=== PATIENT | female | born 1965 | race Caucasian/White ===

== ENCOUNTER → 2017-04-29 | Day surgery (SDC) | payer OTHER ==
[~2017-04-29] MED LIST: ABILIFY5 MG PO; ALPRAZOLAM PO; AMBIEN PO; BENAZEPRIL PO; CELEXA PO; COZAAR100 MG PO; DICLOFENAC PO; ESTRACE PO; HYDROCHLOROTHIA25 MG PO; HYDROCODON-ACE1 EAC9 PO; LEVSIN PO; LODINE PO; LOTENSIN HCT 201 TAB PO; LOVASTATIN20 M1 PO; NABUMETONE PO; NEXIUM PO; NORCO 7.5/325 T1 TAB PO; SYNTHROID PO; VITAMIN D1000 UNI1 PO; WELLBUTRIN PO
--- NOTE | ~2017-04-29 | OR ---
Unit #: [id number] #: [id number] Patient: CONCEPCION CATALAN [id number] [address] [place], [place] [address] [id number] O MR#: [id number] NAME: CONCEPCION CATALAN. ROOM: Date of Procedure: 04/29/2017 Admission Date: 04/29/2017 Surgeon: Sylvain Bhatt M.D. : 1965 Attending Physician: Sylvain Bhatt M.D. Referring Physician: Sylvain Bhatt M.D. Primary Care Physician: Halie Giordano M.D. OPERATIVE REPORT PREOPERATIVE DIAGNOSES 1. Rectal bleeding. 2. Reflux symptoms. 3. Abdominal bloating. POSTOPERATIVE DIAGNOSES 1. Rectal bleeding. 2. Reflux symptoms. 3. Abdominal bloating. PROCEDURES PERFORMED 1. Esophagogastroduodenoscopy. 2. Biopsy of antrum for Helicobacter pylori testing. 3. Biopsy of duodenum for celiac disease testing and pathology. 4. Colonoscopy to cecum. 5. Multiple random biopsies of colon. 6. Hemoclip placement x2 on biopsy sites in the proximal ascending colon. ANESTHESIA Monitored anesthesia care. FINDINGS The patient was found to have on upper endoscopy to have a medium-sized hiatal hernia, mild distal gastritis. There were also some changes indicative of esophageal spasm. On colonoscopy, the patient was found have a normal colon except for internal hemorrhoids. Multiple biopsies were obtained. Two biopsies in the ascending colon had some slight oozing and hemostasis was obtained with hemoclip placement. SPECIMENS Sent to pathology. COMPLICATIONS None apparent. CONDITION The patient tolerated the procedure well. INDICATIONS FOR PROCEDURE The patient is a 51-year-old white female, who presents at this time with the complaint of intermittent rectal bleeding. She also has reflux Unit #: [id number] #: [id number] Patient: CONCEPCION CATALAN symptoms and has had some abdominal bloating. She will often eat and have to have a loose bowel movement immediately afterwards. She presents at this time for evaluation by upper and lower endoscopy. DESCRIPTION OF PROCEDURE After obtaining informed consent, the patient was brought to endoscopy suite and after adequate monitored anesthesia care, had the endoscope placed through the mouth into the upper esophagus under direct vision. It was advanced to the second and third portion of the duodenum without difficulty with lumen always in view. The duodenum was normal. Multiple biopsies were obtained with good hemostasis for evaluation for celiac disease and pathology. The duodenal bulb was normal and the pylorus opened normally. There was some mild distal gastritis present and a biopsy was obtained for Helicobacter pylori testing. On retroflexion back to the GE junction, there was a medium sized hiatal hernia. No other abnormalities were found in the proximal third, middle third, or incisura. On pulling back above the GE junction, there was no stenosis, stricture, or neoplasm seen. There was in the distal esophagus what appeared to be intermittent esophageal spasm in the area of the GE junction, where the GE junction but not opened up easily and actually blanched at the time of spasm. It would then open up. Remaining portion of the esophagus was within normal limits. Laryngeal structures were grossly normal as viewed from above. At this point in time, the colonoscope was placed through the anus and advanced to the level of the cecum without difficulty with the lumen always in view. The cecum was normal as was the ileocecal valve. The ascending colon was normal. There were multiple biopsies obtained randomly from the colon throughout for pathologic evaluation. Two biopsies were obtained in the ascending colon. Each had some slight oozing and as a result, a hemoclip was placed on each site with good hemostasis. Other than this, there was no abnormality seen in the ascending colon, hepatic flexure, transverse colon, splenic flexure, descending colon, sigmoid colon, or rectum. On retroflexing in the rectum to the anorectal junction, there were some moderate-sized internal hemorrhoids. On pulling back through the anal canal, these were again visualized. The colonoscope was removed without difficulty. On digital examination, there was good sphincter tone. No masses palpable. The patient went from the endoscopy suite to the recovery area in stable condition. RECOMMENDATIONS High-fiber diet, lots of liquids, tucks or wipes p.r.n. Gastroesophageal reflux sheet given. Call Thursday for pathology. Dictated by... Iris Medina/zney TD: 04/30/2017 03:28 JOB #: [id number] CC: [facility] Halie Giordano M.D. Unit #: [id number] #: [id number] Patient: CONCEPCION CATALAN OPERATIVE REPORT Page 1 of 1 X Sylvain Bhatt MD PROCEDURE OPERATIVE NOTE
== END | disposition home or self-care (01) ==
LOC: COPS 09:42
DX: K62.5 Hemorrhage of anus and rectum (principal); K29.70 Gastritis, unspecified, without bleeding; K44.9 Diaphragmatic hernia without obstruction or gangrene; K21.9 Gastro-esophageal reflux disease without esophagitis; K64.8 Other hemorrhoids; R14.0 Abdominal distension (gaseous); E03.9 Hypothyroidism, unspecified; I10 Essential (primary) hypertension
CPT/HCPCS: 87077; 88305; J2250

== ENCOUNTER → 2017-05-27 | Outpatient (CLI) | payer OTHER ==
--- NOTE | ~2017-05-27 | CT2 ---
[facility] A Service of [facility] RADIOLOGY TEXT RESULTS PATIENT: CONCEPCION CATALAN LOCATION: [facility] : 63 UNIT #: [id number] AGE: [address]: Sylvain Bhatt MD SEX: F ORDER DR: [id number] [facility]. [place], [place] [address] [id number] O MR#: [id number] [facility] #: [id number] NAME: CONCEPCION CATALAN : 1965 SEX: F STUDY DATE/TIME: 05/27/2017 15:31 UNIT: [facility] ROOM: STUDY DESCRIPTION: CT Abd and Pelv W Cont Attending Physician: Sylvain Bhatt M.D. Referring Physician: Sylvain Bhatt M.D. Ordering Physician: Sylvain Bhatt M.D. Primary Care Physician: Halie Giordano M.D. MEDICAL IMAGING REPORT This report is preliminary unless electronic signature is present EXAM CT abdomen and pelvis with contrast INDICATION Mid abdomen pain and diarrhea for 6 months. Rectal bleeding. No comparison. TECHNIQUE The patient was given 100 mL Isovue-370 and axial 5 mm images were obtained through the abdomen and pelvis. Sagittal and coronal reconstructions were generated. This CT exam was performed with one or more of the following radiation dose reduction techniques: automatic exposure control, adjustment of mA and/or kV according to patient size, and iterative reconstruction. FINDINGS The lung bases are clear. The gallbladder has been removed. The liver, spleen, pancreas, adrenal glands and kidneys are normal in appearance. The aorta is normal in size and there is no adenopathy. The bowel is normal. I do not see any evidence of appendicitis. The appendix is normal. The bladder is normal. The uterus has been removed and there are no adnexal masses. The bones are unremarkable. IMPRESSION 1. The uterus has been removed. 2. Bowel appears normal without evidence of colitis. The appendix is normal. 3. Prior cholecystectomy. 4. Otherwise normal. [facility] A Service of [facility] RADIOLOGY TEXT RESULTS PATIENT: CONCEPCION CATALAN LOCATION: [facility] : 63 UNIT #: [id number] AGE: [address]: Sylvain Bhatt MD SEX: F ORDER DR: Dictated by... Leonardo Dunaway M.D. THIS IS AN ELECTRONICALLY VERIFIED REPORT Leonardo Dunaway M.D. at 05/29/2017 6:04 AM HARPREET/juan a TD: 05/28/2017 06:12 JOB #: [id number] MEDICAL IMAGING REPORT Page 1 of 1 COPY
[2017-05-27 16:16] LABS: POC - CREATININE 0.89 mg/dL (0.44-1.03); POC - GFR >60.0 mL/min (>60)
== END | disposition home or self-care (01) ==
LOC: CCAT 05-26 14:40
PROVIDERS: Surgery
DX: R10.9 Unspecified abdominal pain (principal); R19.7 Diarrhea, unspecified; Z90.49 Acquired absence of other specified parts of digestive tract
CPT/HCPCS: 74177; 82565; Q9967